=== PATIENT | female | born 1990 | race Caucasian/White ===

== ENCOUNTER 2021-02-28 13:39 | Observation (INO) ==
[2021-02-28] MEDS ORDERED: *HR* FentaNYL (PF) 100 MCG/2 ML VIAL ONE ×2 (13:54→15:51)
[2021-02-28] MEDS ORDERED: Lidocaine -MPF 2% 2 ML VIAL ONE ×2 (13:54→15:51)
[2021-02-28] MEDS ORDERED: *HR* Propofol 200 MG/20 ML VIAL IVP ONE ×2 (13:54→15:51)
[2021-02-28] MEDS ORDERED: *HR* Succinylcholine 200 MG/10 ML VIAL IVP ONE ×2 (13:55→15:51)
[2021-02-28] MEDS ORDERED: *HR* Rocuronium Bromide 50 MG/5 ML VIAL ONE ×2 (13:55→15:51)
[2021-02-28] MEDS ORDERED: *HR* Midazolam HCl 2 MG/2 ML VIAL ONE ×2 (14:16→15:51)
[2021-02-28] MEDS ORDERED: Lidocaine HCL 4 ML Topical Solution (Laryng-O-Jet Kit Sterile Pak) TP ONE ×2 (14:17→15:51)
[2021-02-28 14:18] LABS: Basophils # 0.1 K/mcL (0.0-0.2); Basophils % 0.4 %; Eosinophils # 0.1 K/mcL (0.0-0.6); Eosinophils % 0.9 %; Hematocrit 43.2 % (35.3-44.9); Immature Granulocytes % 0.4 % (0-4); Lymphocytes # 3.1 K/mcL (0.6-4.6); Lymphocytes % 23.1 %; Mean Corpuscular HGB Conc 34.7 g/dL (31.6-35.5); Mean Corpuscular Hemoglobin 31.6 pg (28.0-33.3); Mean Corpuscular Volume 90.9 fL (83.0-100.0); Monocytes # 0.9 K/mcL (0.0-1.3); Monocytes % 6.7 %; Platelet Count 306 K/mcL (140-400); Red Blood Count 4.75 M/mcL (3.82-4.97); Red Cell Distribution Width 12.1 % (11.5-14.5); Segmented Neutrophils % 68.5 %; White Blood Count 13.2 K/mcL (4.3-11.1)
[2021-02-28] MEDS ORDERED: Bupivacaine/EPI 1:200k 0.25% 50 ML VIAL ONE (14:19)
[2021-02-28 14:27] LABS: INR 1.1; Prothrombin Time 13.1 Seconds (9.4-12.1)
[2021-02-28] MEDS ORDERED: CeFAZolin Syr 2,000MG/20 ML 2,000 MG/20 ML SYRINGE IVPB ONE (14:45)
[2021-02-28] MEDS ORDERED: Acetaminophen IV 1,000 MG/100 ML BAG IVPB ONE (15:27)
[2021-02-28] MEDS ORDERED: Metoclopramide 10 MG/2 ML VIAL ONE (15:27)
[2021-02-28] MEDS ORDERED: Famotidine 20 MG/2 ML VIAL ONE (15:27)
[2021-02-28] MEDS ORDERED: Ondansetron 4 MG/2 ML VIAL ONE (15:48)
[2021-02-28] MEDS ORDERED: Sugammadex Sodium 200 MG/2 ML VIAL IV ONE (15:50)
[2021-02-28] MEDS ORDERED: Ketorolac 30 MG/ML VIAL ONE (16:23)
[2021-02-28] MEDS ORDERED: *HR* HYDROMORPHONE 2 MG/ML VIAL ONE (16:33)
== END 2021-02-28 18:51 | disposition home or self-care (01) ==
LOC: EMEROOARM 13:39 → 1NENUPED 13:39 → 1NENUOBS 15:26
PROVIDERS: ADMIT Student in an Organized Health Care Education/Training Program; ATTEND Student in an Organized Health Care Education/Training Program